=== PATIENT | male | born 1975 | race Caucasian/White ===

== ENCOUNTER 2022-09-10 08:07 | Emergency (ER) | payer SELFPAY ==
[2022-09-10] MEDS ORDERED: Cetirizine 10 MG Tab PO ONE (08:42)
[2022-09-10] MEDS ORDERED: predniSONE 20 MG Tab PO ONE (08:42)
== END 2022-09-10 09:17 | disposition home or self-care (01) ==
LOC: JP.ED 08:07
DX: L29.9 Pruritus, unspecified (principal)
CPT/HCPCS: 99282